=== PATIENT | male | born 1995 | race Caucasian/White ===

== ENCOUNTER 2022-07-19 16:19 | Emergency (ER) | payer SELFPAY ==
[2022-07-19 16:35] VITALS: BP 157/101; PULSE 116; RESP 18; TEMP 36.6; O2SAT 100
[2022-07-19 16:40] VITALS: BP 157/100; PULSE 116; RESP 18; TEMP 36.6; O2SAT 100
--- NOTE | 2022-07-19 16:58 | ED.SKABFB ---
HPI - Skin/Abscess/Foreign Bdy General Chief complaint: Skin/Abscess/Foreign Body Stated complaint: spider bite on R leg Time Seen by Provider: 07/19/22 16:49 Source: patient and RN notes reviewed Mode of arrival: ambulatory Limitations: no limitations History of Present Illness HPI narrative: patient states he has a spider bite that began 5 days ago. 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 He was having significant pain and has gotten significantly larger just today. He denies any fever chills. complaint: abscess/boil Onset (ago): day(s) (1) Tetanus up to date: yes Location: RLE ( Medial calf) Severity: moderate Quality: burning, aching and dull Pain Consistency: constant Relieving factors: none Exacerbating factors: palpation and movement Associated symptoms: denies other symptoms Treatments prior to arrival: attempted to drain pus at home Related Data Allergies Allergy/AdvReac Type Severity Reaction Status Date / Time Penicillins Allergy Hives Verified 07/19/22 16:48 Review of Systems Review of Systems: All systems reviewed & are unremarkable except as noted in HPI and below PMFSH Past Medical History Medical History (Updated 07/19/22 @ 17:46 by Alfred Caal MD) No active medical problems Surgical History Surgical History (Updated 07/19/22 @ 17:17 by Alfred Caal MD) No pertinent past surgical history Social History Social History (Updated 07/19/22 @ 17:18 by Alfred Caal MD) Smoking packs per day: 1 Smoking cigarettes per day: 20.0 Smoking status: Current every day smoker Tobacco type: cigarettes Alcohol intake: current Alcohol use details: Patient says he drinks mostly on the weekend and sometimes 1 time a week. Substance use: current Substance use type: marijuana Exam Const: General: healthy appearing, no acute distress and alert Nutritional Appearance: well nourished Orientation/consciousness: patient oriented x3 Limitations: no limitations HENMT: Head: normal to inspection Ears: external ears normal Face and sinus: normal facial exam Mouth: Yes moist mucous membranes Eyes: Conjunctivae: conjunctivae normal Pupils: Equal, round and reactive pupils present EOM: EOMs intact bilaterally Neck: Neck: normal visual inspection Resp: Effort & Inspection: normal respiratory effort Auscultation: clear to auscultation bilaterally Cardio: Rate: regular rate Rhythm: regular rhythm GI: Auscultation: normal bowel sounds Back/Spine/Pelvis: Cervical Spine: cervical ROM normal Thoracic/Lumbar Spine: thoraco-lumbar ROM normal Skin: General skin exam: normal color Lesions: lesion noted bulla right posterior lower leg size (3.5 cm), borders ill-defined, color blanching and red, consistency fluctuant, surface crusted, warm and with discharge and tender Neuro: General: patient oriented x3, moves all extremities, no focal motor deficits and CN's II-XI intact bilaterally Speech: normal speech Gait exam (Neuro): Normal gait present Extrem: General: normal to inspection and no clubbing, cyanosis or edema Psych: Mental Status: mental status grossly normal Affect: normal affect Attitude: cooperative Course Vital Signs Vital signs: Vital Signs Temperature 36.6 C 07/19/22 16:35 Pulse Rate 116 H 07/19/22 16:35 Respiratory Rate 18 07/19/22 16:35 Blood Pressure 157/101 H 07/19/22 16:35 Pulse Oximetry 100 07/19/22 16:35 Oxygen Delivery Room Air 07/19/22 16:35 Temperature 36.6 C 07/19/22 16:40 Pulse Rate 110 H 07/19/22 17:45 Respiratory Rate 18 07/19/22 17:45 Blood Pressure 155/93 H 07/19/22 17:45 Pulse Oximetry 100 07/19/22 17:45 Oxygen Delivery Room Air 07/19/22 17:45 Procedures Abscess I/D lower extremity: Date of Incision: 07/19/22 Side (if applicable): right Discharge Pl
[2022-07-19 17:45] VITALS: BP 155/93; PULSE 110; RESP 18; O2SAT 100
[2022-07-19] MEDS: LIDO 1%/EPINEPHRINE 1:100,000 20 ML VIAL 10 ML INFILTRATE (17:48)
== END 2022-07-19 17:52 | disposition home or self-care (01) ==
PROVIDERS: Emergency Provider Emergency Medicine
DX: L02.415 Cutaneous abscess of right lower limb (principal); S80.861A Insect bite (nonvenomous), right lower leg, initial encounter; W57.XXXA Bitten or stung by nonvenomous insect and other nonvenomous arthropods, initial encounter; F17.210 Nicotine dependence, cigarettes, uncomplicated
CPT/HCPCS: 10060; 99283

== ENCOUNTER 2022-07-25 15:45 | Emergency (ER) | payer SELFPAY ==
[2022-07-25 15:45] VITALS: BP 162/110; PULSE 106; RESP 18; TEMP 36.7; O2SAT 99
--- NOTE | 2022-07-25 17:00 | ED.GENADULT ---
HPI - General Adult General Chief complaint: Medical Clearance Stated complaint: re-check Source: patient Mode of arrival: ambulatory Limitations: no limitations History of Present Illness HPI narrative: patient is here to get a note to return to work that is his chief complaint. He is here July 19 at an I and D of abscess of his right calf he said he had a spider bite there 5 days previous to that date. He is given cephalexin to take 3 times a day for 7 days he still has some left. Says the pain is better still draining a little bit. Minimal pain he is walking fine. He needs a note to return to work. Related Data Allergies Allergy/AdvReac Type Severity Reaction Status Date / Time Penicillins Allergy Hives Verified 07/25/22 15:49 Review of Systems Constitutional: Constitutional: Reports no additional constitutional complaints Eyes: Eyes: Reports no additional eye complaints ENT: Reports system reviewed and no additional complaints, except as documented Cardiovascular: Cardiovascular: Reports no additional cardiovascular complaints Respiratory: Respiratory: Reports no additional respiratory complaints Gastrointestinal: Gastrointestinal: Reports no additional gastrointestinal complaints Genitourinary: Genitourinary: Reports no additional male genitourinary complaints Musculoskeletal: Musculoskeletal: Reports no additional musculoskeletal complaints and Reports as per HPI Integumentary/Breasts: Skin/Breast: Reports system reviewed and no additional complaints, except as docu and Reports as per HPI Neurologic: Reports system reviewed and no additional complaints, except as documented PMFSH Past Medical History Medical History No active medical problems Surgical History Surgical History No pertinent past surgical history Social History Social History Smoking packs per day: 1 Smoking cigarettes per day: 20.0 Smoking status: Current every day smoker Tobacco type: cigarettes Alcohol intake: current Alcohol use details: Patient says he drinks mostly on the weekend and sometimes 1 time a week. Substance use: current Substance use type: marijuana Exam Narrative: Right calf: dried scab with serous discharge . Mild erythema and tenderness around wound. Ambulates fine. Const: General: healthy appearing Nutritional Appearance: well nourished Orientation/consciousness: patient oriented x3 Limitations: no limitations Course Vital Signs Vital signs: Vital Signs Temperature 36.7 C 07/25/22 15:45 Pulse Rate 106 H 07/25/22 15:45 Respiratory Rate 18 07/25/22 15:45 Blood Pressure 162/110 H 07/25/22 15:45 Pulse Oximetry 99 07/25/22 15:45 Oxygen Delivery Room Air 07/25/22 15:45 Temperature 36.7 C 07/25/22 15:45 Pulse Rate 106 H 07/25/22 15:45 Respiratory Rate 18 07/25/22 15:45 Blood Pressure 162/110 H 07/25/22 15:45 Pulse Oximetry 99 07/25/22 15:45 Oxygen Delivery Room Air 07/25/22 15:45 Medical Decision Making MDM Narrative Medical decision making narrative: Patient has a healing abscess on cephalexin. Comes into given a return to work note. Vital Signs Vital Signs: Vital Signs Temperature 36.7 C 07/25/22 15:45 Pulse Rate 106 H 07/25/22 15:45 Respiratory Rate 18 07/25/22 15:45 Blood Pressure 162/110 H 07/25/22 15:45 Pulse Oximetry 99 07/25/22 15:45 Oxygen Delivery Room Air 07/25/22 15:45 Temperature 36.7 C 07/25/22 15:45 Pulse Rate 106 H 07/25/22 15:45 Respiratory Rate 18 07/25/22 15:45 Blood Pressure 162/110 H 07/25/22 15:45 Pulse Oximetry 99 07/25/22 15:45 Oxygen Delivery Room Air 07/25/22 15:45 Discharge Plan Discharge Clinical Impression: Encounter for wound re-check Patient Disposition: Home, Self-Care Condition: Stab
[2022-07-25 17:26] VITALS: BP 150/96; PULSE 78; RESP 14; O2SAT 98
--- NOTE | 2022-07-25 17:27 | PC.NURSE ---
PT WOUND WAS CLEANED WITH SHURCLENZ AND DRESSED WITH [facility]ANDA[employer] PRIOR TO DC.
== END 2022-07-25 17:15 | disposition home or self-care (01) ==
PROVIDERS: Emergency Provider Emergency Medicine
DX: Z48.00 Encounter for change or removal of nonsurgical wound dressing (principal)
CPT/HCPCS: 99282